=== PATIENT | male | born 1945 | race Caucasian/White ===

== ENCOUNTER → 2024-03-26 | Day surgery (SDC) | payer MEDICARE, OTHER ==
[2024-03-23 14:52] LABS: BASOPHILS % 0.8 % (0.0-1.0); EOSINOPHILS # (AUTO) 0.1 (0.0-0.4); EOSINOPHILS % 2.7 % (0.0-6.0); HEMATOCRIT 47.3 % (38.2-49.6); HEMOGLOBIN 14.8 g/dL (14.0-18.0); LYMPHOCYTES # (AUTO) 1.4 (1.0-3.2); LYMPHOCYTES % 28.7 % (18.0-39.1); MEAN CORPUSCULAR HEMOGLOBIN 30.3 pg (28-32); MEAN CORPUSCULAR HGB CONC 31.3 g/dL (31-35); MEAN CORPUSCULAR VOLUME 96.9 fL (81-99); MONOCYTES # (AUTO) 0.6 (0.2-0.8); MONOCYTES % 11.5 % (4.4-11.3); NEUTROPHILS # (AUTO) 2.7 (2.1-6.9); NEUTROPHILS % 56.1 % (38.7-80.0); PLATELET COUNT 156 x10e3/uL (140-360); RED BLOOD COUNT 4.88 x10e6/uL (4.3-5.7); RED CELL DISTRIBUTION WIDTH 13.9 % (11.7-14.4); WHITE BLOOD COUNT 4.85 x10e3/uL (4.8-10.8)
[2024-03-23 15:12] LABS: ANION GAP 13.3 mmol/L (8-16); CREATININE, SERUM 1.22 mg/dL (0.72-1.25); POTASSIUM 4.3 mmol/L (3.5-5.1)
[~2024-03-26] MED LIST: ACETAMINOPHEN 1000 MG/100 ML 0 ML IV ONE; ASPIRIN81 MG PO; ATORVASTATIN CA20 MG PO; COQ-10100 MG PO; FENTANYL CITRATE/PF 100MCG/2 ML INJ ONE; FINASTERIDE5 MG PO; FLOMAX0.4 MG PO; HYDRALAZINE HCL 20 MG/ML VIAL ONE; HYDROCODONE/APAP 5MG-325MG TAB ONE; KRILL OIL 1,001 EACH PO; LIDOCAINE HCL 2% LOCAL INJ 5 ML SDV VIAL INJ ONE; LOSARTAN POTAS100 MG PO; MAGNESIUM PO; MEMANTINE HCL5 MG PO; METHOCARBAMOL750 MG PO; NIFEDIPINE10 MG PO; ONDANSETRON HCL INJ 2MG/ML 2ML 2 MG/ML VIAL ONE; PRIMIDONE125 MG PO; PROPOFOL IV EMULSION 50 ML IV ONE; PROPRANOLOL HCL80 MG PO; VENLAFAXINE HCL75 MG PO; ZINC PO
[2024-03-26] MEDS: LACTATED RINGER'S 1,000 ML ONE (11:17)
[2024-03-26 14:59] VITALS: TEMP 97.8
[2024-03-26 15:40] VITALS: BP 149/89; PULSE 76; RESP 18; O2SAT 98
== END | disposition home or self-care (01) ==
LOC: OR 10:11
PROVIDERS: ATTEND Surgery
DX: K40.90 Unilateral inguinal hernia, without obstruction or gangrene, not specified as recurrent (principal); D17.6 Benign lipomatous neoplasm of spermatic cord; G47.33 Obstructive sleep apnea (adult) (pediatric); I25.10 Atherosclerotic heart disease of native coronary artery without angina pectoris; I10 Essential (primary) hypertension; E78.5 Hyperlipidemia, unspecified; N40.0 Benign prostatic hyperplasia without lower urinary tract symptoms; G89.29 Other chronic pain; M19.91 Primary osteoarthritis, unspecified site; F03.90 Unspecified dementia, unspecified severity, without behavioral disturbance, psychotic disturbance, mood disturbance, and anxiety; Z01.810 Encounter for preprocedural cardiovascular examination; Z01.812 Encounter for preprocedural laboratory examination; Z01.818 Encounter for other preprocedural examination; Z79.82 Long term (current) use of aspirin; Z79.899 Other long term (current) drug therapy; Z95.5 Presence of coronary angioplasty implant and graft
CPT/HCPCS: 36415; 49525; 71046; 80048; 85025; 93005; C1781; J0360; J2003; J2405; J2704; J3010; J7121